=== PATIENT | male | born 1985 | race Caucasian/White ===

== ENCOUNTER 2017-08-05 20:13 | Emergency (ER) | payer OTHER ==
[~2017-08-05 20:13] MED LIST: AUGM875 PO; TRIA3AER; Z.0.NO CURRENT MEDS
[2017-08-05 20:24] VITALS: BP 134/98; PULSE 77; RESP 22; TEMP 98.1; O2SAT 100
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
[2017-08-05 21:24] VITALS: BP 131/82; PULSE 71; RESP 16; O2SAT 100
[2017-08-05 22:51] VITALS: BP 121/65
== END 2017-08-05 22:51 | disposition home or self-care (01) ==
LOC: NEPB 20:13
DX: R00.0 Tachycardia, unspecified (principal); J02.9 Acute pharyngitis, unspecified; Z77.098 Contact with and (suspected) exposure to other hazardous, chiefly nonmedicinal, chemicals
CPT/HCPCS: 82805; 99283